=== PATIENT | female | born 1965 | race Caucasian/White ===

== ENCOUNTER 2017-07-01 06:50 | Emergency (ER) | payer OTHER ==
[2017-07-01 07:02] VITALS: BP 137/94; PULSE 84; TEMP 99.1; BMI 28.3
--- NOTE | 2017-07-01 07:14 | PDOC ---
History of Present Illness - General Chief Complaint: Injury Stated Complaint: LT ANKLE INJURY Time Seen by Provider: 07/01/17 07:12 History Source: Patient Exam Limitations: No Limitations - History of Present Illness Initial Comments: 07/01/17 07:20 This patient is a 52 yo F with no significant past medical history He presents to the ER with a complaint of ankle pain Pt states that last night, while going down the stairs, she missed a stair and injured her left ankle She had pain with walking No bruising No pain in the hips or knees No head trauma, no LOC, no amnesia ROS: GENERAL/CONSTITUTIONAL: No: fever, chills, weakness, loss of appetite. MUSCULOSKELETAL: Yes: left ankle pain, tenderness No: back pain, neck pain SKIN: No: bruising. NEUROLOGIC: No: headache, vertigo, paresthesias, weakness PE: General: Appears well, non-toxic. Skin: Warm and dry. No lesions or rashes of exposed skin appreciated. Head: NCAT Eyes: EOMI Throat: No apparent airway compromise Neck is symmetrical, supple. Trachea is midline. FROM Musculoskeletal: No deformities, ecchymosis Yes: swelling lateral malleolus, No tenderness to palpation of the DIPs, PIPs, MTPs, phalanges, metatarsals, tarsals, lateral or medial malleolus, Achilles, tibia, fibula, knee, hip bilaterally. Full range of motion of the lower extremities intact. Patient able to bear weight but has pain when doing so. Dorsalis pedis and posterior tibialis pulses 2+ and equal bilaterally. Capillary refill less than 2 seconds bilaterally. Neurologic: The patient is awake, alert, oriented x3. Gross motor and sensory exam is found to be intact. Sensation of distal lower extremities intact. 5/5 muscle strength of the lower extremities. DTRs, Achilles, patellar 1-2+ and equal bilaterally. 07/01/17 07:23 07/01/17 07:30 07/01/17 07:32 Past History - Past Medical History Allergies/Adverse Reactions: Allergies Allergy/AdvReac Type Severity Reaction Status Date / Time Penicillins Allergy Verified 07/03/14 19:32 Sulfa (Sulfonamide Allergy Verified 07/03/14 19:33 Antibiotics) Home Medications: Ambulatory Orders NK [No Known Home Medication] 07/01/17 Other medical history: DENIES - Suicide/Smoking/Psychosocial Hx Smoking History: Never smoked Have you smoked in the past 12 months: No Hx Alcohol Use: No Substance Use Type: None *Physical Exam - Vital Signs Last Vital Signs Temp Pulse Resp BP Pulse Ox 99.1 F 84 16 137/94 96 07/01/17 07:00 07/01/17 07:00 07/01/17 07:00 07/01/17 07:00 07/01/17 07:00 Medical Decision Making - Medical Decision Making 07/01/17 07:30 52 yo F presenting with a complaint of left sided ankle pain x 1 with associated swelling, denies bruising Vitals: WNL XRAY negative Clinical impression: Most likely ankle sprain as x-ray demonstrated no sign of fracture. Patient placed in air case and given NSAIDS for pain, told to rest it for at least 1 week or until feeling better. RICE Pt directed to follow up with PCP/Referral within 24-48 hours and to go to ED if they develop any new worsening symptoms. Pt expressed understanding and agreement with above stated plan 07/01/17 07:56 *DC/Admit/Observation/Transfer Diagnosis at time of Disposition: Sprained ankle Qualifiers: Encounter type: initial encounter Involved ligament of ankle: other ligament Laterality: left Qualified Code(s): S93.492A - Sprain of other ligament of left ankle, initial encounter - Discharge Dispostion Disposition: HOME Condition at time of disposition: Stable - Referrals Referrals: Cristobal Yun [Primary Care Provider] - Adam Trejo MD [Staff Physician] - - Patient Instructions Printed Discharge Instructions: DI for Ankle Pain, DI for Ankle Sprain Additional Instructions: Today you were seen for ankle pain and the X-ray demonstrated no signs of fracture (broken bone), for that reason it is more likely a sprain based on your symptoms and the appearance and exam findings of your ankle. Please be sure to rest, ice and elevate it and to avoid bearing weight until feeling better. You may take the medications weve provided you as directed but please be sure to read the instructions provided by the pharmacist to make sure you take the medications correctly. You should not participate in any sports for at least 1 week or until you are feeling better. Follow up with your primary cares office, or the referral weve provided you within 24 hours to inform them of todays visit and to see if they would like to /need to see you. If you develop any new or worsening symptoms, or any fevers that cant be controlled with Tylenol or Motrin go directly to the emergency room. - Post Discharge Activity Forms/Work/School Notes: Back to Work
== END 2017-07-01 08:10 | disposition home or self-care (01) ==
LOC: FER 06:50
DX: S93.492A Sprain of other ligament of left ankle, initial encounter (principal); W10.9XXA Fall (on) (from) unspecified stairs and steps, initial encounter; Y93.89 Activity, other specified; Y92.9 Unspecified place or not applicable
CPT/HCPCS: 73610-TC-LT; 99281-25

== ENCOUNTER 2017-10-15 01:48 | Emergency (ER) | payer SELFPAY ==
[2017-10-15 01:59] VITALS: TEMP 98.9; BMI 30.2
[2017-10-15] MEDS ORDERED: SODIUM CHLORIDE 0.9% 1000 ML INFUS.BAG IV ONE (02:06)
[2017-10-15] MEDS ORDERED: ONDANSETRON 4 MG/2 ML VIAL IVPUSH PRN (02:06)
[2017-10-15] MEDS ORDERED: ONDANSETRON 4 MG/2 ML VIAL ONE (02:08)
--- NOTE | 2017-10-15 02:09 | PDOC ---
History of Present Illness - General Chief Complaint: Nausea/Vomiting Stated Complaint: N/V/D Time Seen by Provider: 10/15/17 02:03 History Source: Patient Exam Limitations: No Limitations - History of Present Illness Initial Comments: 10/15/17 02:07 Pt presents to the ED complaining of nausea, vomiting and profuse watery diarrhea that started at 9 pm. Patient reports > 5 episodes of diarrhea and >5 episodes of vomiting. Vomit is the food she has eaten. Denies abdominal pain or fever. Denies urinary complaints. Reports that her symptoms began after eating undercooked shrimp at a restaurant [place] this evening. Past History - Past Medical History Allergies/Adverse Reactions: Allergies Allergy/AdvReac Type Severity Reaction Status Date / Time Penicillins Allergy Verified 07/03/14 19:32 Sulfa (Sulfonamide Allergy Verified 07/03/14 19:33 Antibiotics) Home Medications: Ambulatory Orders NK [No Known Home Medication] 07/01/17 COPD: No - Suicide/Smoking/Psychosocial Hx Smoking History: Never smoked Have you smoked in the past 12 months: No Hx Alcohol Use: No Substance Use Type: None Review of Systems - Review of Systems Constitutional: No: Symptoms Reported, See HPI, Chills, Diaphoresis, Fever, Loss of Appetite, Malaise, Night Sweats, Weakness, Weight Stable, Unintentional Wgt. Loss, Unexplained wgt Loss, Other HEENTM: No: Symptoms Reported, See HPI, Eye Pain, Blurred Vision, Tearing, Recent change in vision, Double Vision, Cataracts, Ear Pain, Ocular Prothesis, Ear Discharge, Nose Pain, Nose Congestion, Tinnitus, Nose Bleeding, Hearing Loss , Throat Pain, Throat Swelling, Mouth Pain, Dental Problems, Difficulty Swallowing, Mouth Swelling, Other Respiratory: No: Symptoms reported, See HPI, Cough, Orthopnea, Shortness of Breath, SOB with Exertion, SOB at Rest, Stridor, Wheezing, Productive cough, Hemoptysis, Other Cardiac (ROS): No: Symptoms Reported, See HPI, Chest Pain, Edema, Irregular Heart Rate, Lightheadedness, Palpitations, Syncope, Chest Tightness, Other ABD/GI: Yes: Diarrhea, Nausea, Vomiting. No: Symptoms Reported, See HPI, Abdominal Distended, Abd. Pain w/ defecation, Blood Streaked Bowels, Constipated , Difficulty Swallowing, Poor Appetite, Poor Fluid Intake, Rectal Bleeding, Indigestion, Abdominal cramping, Tarry Stools, Other : No: Symptoms Reported, See HPI, Burning, Dysuria, Discharge, Frequency, Flank Pain, Hematuria, Incontinence, Pain, Urgency, Testicular Mass, Testicular Swelling, Lesions, Testicular Pain, Other Musculoskeletal: No: Symptoms Reported, See HPI, Back Pain, Gout, Joint Pain, Joint Swelling, Muscle Pain, Muscle Weakness, Neck Pain, Joint Stiffness, Other Integumentary: No: Symptoms Reported, See HPI, Bruising, Change in Color, Change in Hair/Nails, Dryness, Erythema, Flushing, Lesions, Lumps, Pallor, Pruritus, Rash, Sweating, Other Neurological: No: Symptoms reported, See HPI, Headache, Numbness, Paresthesia, Pre-Existing Deficit, Seizure, Tingling, Tremors, Weakness, Unsteady Gait, Ataxia, Dizziness, Other *Physical Exam - Vital Signs Last Vital Signs Temp Pulse Resp BP Pulse Ox 98.9 F 117 H 18 159/110 100 10/15/17 01:56 10/15/17 01:56 10/15/17 01:56 10/15/17 01:56 10/15/17 01:56 - Physical Exam General Appearance: Yes: Nourished, Appropriately Dressed, Apparent Distress HEENT: positive: Normal ENT Inspection Neck: positive: Supple Respiratory/Chest: positive: Lungs Clear, Normal Breath Sounds. negative: Chest Tender, Respiratory Distress, Accessory Muscle Use, Labored Respiration, Rapid RR, Decreased Breath Sounds, Paradoxal Breathing, Crackles, Rales, Rhonchi , Stridor, Wheezing, Hyperresonant, Dullness, Plerual Rub, Other Cardiovascular: positive: Regular Rhythm, Regular Rate, S1, S2 Gastrointestinal/Abdominal: positive: Flat, Soft. negative: Normal Bowel Sounds , Tender, Organomegaly, Pulsatile Mass, Increased Bowel Sounds, Decreased BS, Protuberent, Distended, Guarding, Rebound, Tenderness, Hernia, Mass, Hepatomegaly, Spleenomegaly, Other Musculoskeletal: positive: Normal Inspection Extremity: positive: Normal Inspection, Normal Range of Motion. negative: Tender, Coldness, Cyanosis, Delayed Capillary Refill, Pedal Edema, Swelling, Calf Tenderness, Erythema, Inflammation, Other Integumentary: positive: Normal Color, Dry, Warm Neurologic: positive: quality assurance inspector II-XII NML intact, Fully Oriented, Alert, Normal Mood/ Affect, Normal Response, Motor Strength 02/11 ED Treatment Course - LABORATORY CBC & Chemistry Diagram: 10/15/17 02:20 10/15/17 02:20 Medical Decision Making - Medical Decision Making 10/15/17 02:11 Pt presents to the ED complaining of nausea, vomiting and profuse watery diarrhea. No abdominal pain or tenderness, no urinary complaints. Symptoms are consistent with viral gastoenteritis. unlikely to be biliary disease, given the patient's lack of abdominal pain. Will treat with IV hydration, check labs and give nausea control. Will reassess. *DC/Admit/Observation/Transfer Diagnosis at time of Disposition: Gastroenteritis - Discharge Dispostion Disposition: HOME Condition at time of disposition: Good Admit: No - Referrals - Patient Instructions Printed Discharge Instructions: DI for Vomiting -- Adult Additional Instructions: return to the ED for severe nausea and vomiting, unable to tolerate fluids, severe abdominal pain, bloody vomit or diarrhea. follow up with your primary care doctor within one week. - Post Discharge Activity
[2017-10-15] MEDS ORDERED: METOCLOPRAMIDE HCL INJECTION 10 MG/2 ML VIAL IVPUSH ONE (02:54)
[2017-10-15 03:01] LABS: HEMATOCRIT 42.7 % (32.4-45.2); HEMOGLOBIN 14.5 GM/dL (10.7-15.3); MCH 28.7 pg (25.7-33.7); MEAN CELL VOLUME 84.6 fl (80-96); MEAN PLT VOLUME 8.5 fl (7.5-11.1); PLATELET COUNT 258 K/MM3 (134-434); RBC 5.05 M/mm3 (3.60-5.2); RDW 13.6 % (11.6-15.6); WHITE BLOOD COUNT 11.6 K/mm3 (4.0-10.0)
[2017-10-15 03:02] VITALS: BP 138/91
[2017-10-15 03:29] LABS: ALBUMIN 4.3 g/dl (3.4-5.0); ALK PHOS 168 U/L (45-117); ANION GAP 9 (8-16); BLOOD UREA NITROGEN 17 mg/dL (7-18); CALCIUM 8.9 mg/dL (8.5-10.1); CHLORIDE 106 mmol/L (98-107); CO2 25 mmol/L (21-32); CREATININE 0.6 mg/dL (0.55-1.02); GLUCOSE,RANDOM 129 mg/dL (74-106); POTASSIUM 3.9 mmol/L (3.5-5.1); SGOT/AST 62 U/L (15-37); SGPT/ALT 138 U/L (12-78); SODIUM 140 mmol/L (136-145)
[2017-10-15 03:53] VITALS: PULSE 100
== END 2017-10-15 04:10 | disposition home or self-care (01) ==
LOC: FER 01:48
PROC: 3E0337Z Introduction of Electrolytic and Water Balance Substance into Peripheral Vein, Percutaneous Approach (ICD-10-PCS; principal; 2017-10-15)
PROC: 3E0337Z Introduction of Electrolytic and Water Balance Substance into Peripheral Vein, Percutaneous Approach (ICD-10-PCS; 2017-10-15)
DX: K52.9 Noninfective gastroenteritis and colitis, unspecified (principal)
CPT/HCPCS: 36415; 80053; 85025; 99283-25

== ENCOUNTER 2018-10-26 21:09 | Emergency (ER) | payer OTHER ==
--- NOTE | 2018-10-26 21:15 | PDOC ---
History of Present Illness - General History Source: Patient Exam Limitations: No Limitations - History of Present Illness Initial Comments: 10/26/18 21:37 The patient is a 53 year old female with no past medical history here today for evaluation of nausea, vomiting, and diarrhea. The patient reports that her symptoms began at 2 pm and reports having 4 episodes of vomiting (vomitus consists of food) and over 20 episodes of diarrhea (diarrhea has watery consistency but notes last episode was yellowish in color). She notes associated chills, epigastric pain, lightheadedness, and headache. Patient reports that she took zofran (that was prescribed last year for similar episode ) which did not help. Patient denies fever, chills. Denies chest pain, shortness of breath. Denies abdominal pain. Denies travel or suspicious food intake. Allergies: penicillins, sulfonamide antibiotics Social history: patient denies tobacco and alcohol use PCP: none reported <Moo Acosta - Last Filed: 10/26/18 22:42> <Di Sutherland - Last Filed: 10/27/18 06:50> - General Chief Complaint: Nausea/Vomiting Stated Complaint: NAUSEA, VOMITING DIARRHEA SINCE 2 PM Time Seen by Provider: 10/26/18 21:13 Past History <Moo Acosta - Last Filed: 10/26/18 22:42> - Past Medical History COPD: No - Suicide/Smoking/Psychosocial Hx Smoking History: Never smoked Have you smoked in the past 12 months: No Hx Alcohol Use: No Substance Use Type: None <Di Sutherland - Last Filed: 10/27/18 06:50> - Past Medical History Allergies/Adverse Reactions: Allergies Allergy/AdvReac Type Severity Reaction Status Date / Time Penicillins Allergy Intermediate Hives Verified 10/26/18 21:11 Sulfa (Sulfonamide Allergy Intermediate Hives Verified 10/26/18 21:11 Antibiotics) Home Medications: Ambulatory Orders Ondansetron [Zofran -] 4 mg PO PRN PRN 10/26/18 Ondansetron [Zofran Odt -] 4 mg SL TID PRN #12 od.tablet 10/26/18 Review of Systems - Review of Systems Able to Perform ROS?: Yes Comments:: 10/26/18 21:37 All systems are reviewed and negative except as noted in the HPI <Moo Acosta Last Filed: 10/26/18 22:42> *Physical Exam - Vital Signs Last Vital Signs Temp Pulse Resp BP Pulse Ox 97.8 F 118 H 22 H 153/99 99 10/26/18 21:11 10/26/18 21:11 10/26/18 21:11 10/26/18 21:11 10/26/18 21:11 - Physical Exam Comments: 10/26/18 22:42 GENERAL: Awake, alert, and fully oriented, in no acute distress HEAD: No signs of trauma EYES: PERRLA, EOMI, sclera anicteric, conjunctiva clear ENT: +dry mucous membranes. Auricles normal inspection, hearing grossly normal, nares patent, oropharynx clear without exudates. NECK: Normal ROM, supple, no lymphadenopathy, JVD, or masses LUNGS: Breath sounds equal, clear to auscultation bilaterally. No wheezes, and no crackles HEART: Regular rate and rhythm, normal S1 and S2, no murmurs, rubs or gallops ABDOMEN: +hyperactive bowel sounds. +epigastric and left upper quadrant tenderness. Soft. No guarding, no rebound. No masses. Negative Webb's sign EXTREMITIES: Normal range of motion, no edema. No clubbing or cyanosis. No cords, erythema, or tenderness NEUROLOGICAL: Cranial nerves II through XII grossly intact. Normal speech, normal gait SKIN: Warm, Dry, normal turgor, no rashes or lesions noted. <Moo Acosta - Last Filed: 10/26/18 22:42> Moderate Sedation - Procedure Monitoring Vital Signs: Procedure Monitoring Vital Signs Temperature 97.8 F 10/26/18 21:11 Pulse Rate 118 H 10/26/18 21:11 Respiratory Rate 22 H 10/26/18 21:11 Blood Pressure 153/99 10/26/18 21:11 O2 Sat by Pulse Oximetry (%) 99 10/26/18 21:11 <Moo Acosta - Last Filed: 10/26/18 22:42> ED Treatment Course - LABORATORY CBC & Chemistry Diagram: 10/26/18 21:15 10/26/18 21:15 <Moo Acosta - Last Filed: 10/26/18 22:42> - LABORATORY CBC & Chemistry Diagram: 10/26/18 21:15 10/26/18 21:15 <Di Sutherland - Last Filed: 10/27/18 06:50> Progress Note - Progress Note Progress Note: Documentation has been prepared under my direction and personally reviewed by me in its entirety. I attest that this documented accurately reflects all work, treatment, procedures and medical decision making performed by me. <Di Sutherland - Last Filed: 10/27/18 06:50> Medical Decision Making - Medical Decision Making As noted above, this 53-year-old woman with no significant past medical history presents with a one-day history of nausea/vomiting/diarrhea. Exam as noted. The patient received 2 L of normal saline IV as well as 4 mg of Zofran IV with significant relief in her symptoms. CBC/chemistry profile/lipase was evaluated and was essentially normal without evidence of electrolyte abnormality or elevation of lipase. Patient was discharged with instructions to maintain clear liquid diet and advance to full diet cautiously Zofran ODT 4 mg to be used as needed for nausea up to 3 times a day prescribed. Patient will will return to the ER if she has recurrent severe vomiting/ abdominal pain/fever <Di Sutherland - Last Filed: 10/27/18 06:50> *DC/Admit/Observation/Transfer - Attestations Scribe Attestion: 10/26/18 21:37 Documentation prepared by CEDRIC Matute, acting as medical assistant secretary for Di Sutherland MD. <Moo Acosta - Last Filed: 10/26/18 22:42> <Di Sutherland - Last Filed: 10/27/18 06:50> Diagnosis at time of Disposition: Gastroenteritis - Discharge Dispostion Disposition: HOME Condition at time of disposition: Stable - Prescriptions Prescriptions: Ondansetron [Zofran Odt -] 4 mg SL TID PRN #12 od.tablet PRN Reason: Nausea - Patient Instructions Printed Discharge Instructions: Viral Gastroenteritis Additional Instructions: clear liquids, advance diet cautiously Zofran ODT 4mg as needed for nausea Imodium/Kaopectate as needed for diarrhea Return to ER if you have persistent vomiting or experience severe pain/fever/ bloody diarrhea Follow-up with your doctor within the next 5 days
[2018-10-26 21:17] VITALS: BP 153/99; PULSE 118; TEMP 97.8; BMI 30.1
[2018-10-26] MEDS ORDERED: ONDANSETRON 4 MG/2 ML VIAL IVPUSH ONE (21:37)
[2018-10-26] MEDS ORDERED: SODIUM CHLORIDE 1,000 ML IV STA (21:37)
[2018-10-26] MEDS ORDERED: ONDANSETRON 4 MG/2 ML VIAL ONE (21:40)
[2018-10-26 21:58] LABS: HEMOGLOBIN 14.7 GM/dl (10.7-15.3); MCH 28.8 pg (25.7-33.7); MCHC 33.5 g/dl (32.0-36.0); PLATELET COUNT 289 K/MM3 (134-434); RBC 5.11 M/mm3 (3.60-5.2); RDW 12.8 % (11.6-15.6); WHITE BLOOD COUNT 12.2 K/mm3 (4.0-10.8)
[2018-10-26 22:01] LABS: ALBUMIN 4.8 g/dl (3.5-5.0); ALK PHOS 112 U/L (32-92); ANION GAP 8 MMOL/L (8-16); BLOOD UREA NITROGEN 16 mg/dl (7-18); CALCIUM 9.9 mg/dl (8.4-10.2); CHLORIDE 101 mmol/L (98-107); CO2 26 mmol/L (22-28); CREATININE 0.7 mg/dl (0.6-1.3); GLUCOSE,RANDOM 156 mg/dl (74-106); POTASSIUM 3.8 mmol/L (3.5-5.1); SGOT/AST 30 U/L (10-42); SGPT/ALT 45 U/L (10-40); SODIUM 135 mmol/L (136-145); TOT PROT 8.1 g/dl (6.4-8.3)
[2018-10-26] MEDS ORDERED: KETOROLAC TROMETHAMINE 30 MG/1 ML VIAL IVPUSH ONE (22:07)
[2018-10-26] MEDS ORDERED: KETOROLAC TROMETHAMINE 30 MG/1 ML VIAL ONE (22:11)
[2018-10-26 22:25] LABS: PLATELET ESTIMATE ADEQUATE
[2018-10-26 23:27] LABS: LIPASE 162 U/L (73-393)
== END 2018-10-26 23:42 | disposition home or self-care (01) ==
LOC: FER 21:09
PROC: 3E0333Z Introduction of Anti-inflammatory into Peripheral Vein, Percutaneous Approach (ICD-10-PCS; principal; 2018-10-26)
PROC: 3E033GC Introduction of Other Therapeutic Substance into Peripheral Vein, Percutaneous Approach (ICD-10-PCS; 2018-10-26)
PROC: 3E0337Z Introduction of Electrolytic and Water Balance Substance into Peripheral Vein, Percutaneous Approach (ICD-10-PCS; 2018-10-26)
DX: K52.9 Noninfective gastroenteritis and colitis, unspecified (principal)
CPT/HCPCS: 36415; 80053; 83690; 85025; 99282-25; J7030